=== PATIENT | female | born 1950 | race Caucasian/White ===

== ENCOUNTER → 2016-07-14 | Outpatient (CLI) | payer OTHER ==
[2016-07-14 08:21] LABS: CH 29.6; CHCM 31.8; HCT 41.5 % (34.0-46.0); HDW 2.21; HGB 13.4 gm/dL (11.4-16.0); MCH 30.2 pg (25.0-35.0); MCHC 32.2 g/dL (31.0-37.0); MCV 93.6 fL (80.0-100.0); Mean Platelet Volume 7.2; RBC 4.44 m/uL (3.80-5.40); RDW 12.4 % (11.5-15.5); WBC 6.1 k/uL (3.8-10.6)
--- NOTE | 2016-07-14 08:36 | XR ---
EXAMINATION TYPE: XR chest 2V DATE OF EXAM: 07/14/2016 7:59 AM HISTORY: Back pain. REFERENCE: Previous study dated 11/04/2012. FINDINGS: The lungs are overinflated but clear. Pleural spaces are clear. Heart size is normal. There is a mild dextroscoliosis. There is mild spondylosis deformans throughout the dorsal spine. No fractures are seen. IMPRESSION: 1. COPD. 2. MILD DEGENERATIVE CHANGE WITHIN THE THORACIC SPINE.
[2016-07-14 08:47] LABS: ALT 26 U/L (9-52); AST 16 U/L (14-36); Alkaline Phosphatase 84 U/L (38-126); Anion Gap 11 mmol/L; Blood Urea Nitrogen 18 mg/dL (7-17); Calcium 9.6 mg/dL (8.4-10.2); Carbon Dioxide 24 mmol/L (22-30); Chloride 109 mmol/L (98-107); Cholesterol 234 mg/dL (<200); Glucose 96 mg/dL (74-99); HDL Cholesterol 46 mg/dL (40-60); Non-African American GFR(MDRD) >60 (>60 ml/min/1.73 sqM); Potassium 4.5 mmol/L (3.5-5.1); Sodium 144 mmol/L (137-145); Total Bilirubin 0.6 mg/dL (0.2-1.3); Total Protein 7.1 g/dL (6.3-8.2); Triglycerides 163 mg/dL (<150)
== END | disposition home or self-care (01) ==
LOC: LABWHC1 07:40
PROVIDERS: ATTEND Internal Medicine
DX: E11.9 Type 2 diabetes mellitus without complications (principal); E78.2 Mixed hyperlipidemia; J44.9 Chronic obstructive pulmonary disease, unspecified
CPT/HCPCS: 36415; 71020; 80053; 80061; 84439; 84443; 85027

== ENCOUNTER → 2017-09-07 | Outpatient (CLI) | payer OTHER ==
--- NOTE | 2017-09-09 07:29 | MM ---
Reason for exam: screening (asymptomatic). Last mammogram was performed 1 year and 8 months ago. History: Patient is postmenopausal. Physical Findings: A clinical breast exam by your physician is recommended on an annual basis and results should be correlated with mammographic findings. MG Screening Mammo w CAD Bilateral CC and MLO view(s) were taken. Prior study comparison: December 24, 2015, bilateral MG screening mammo w CAD. March 18, 2014, right breast MG work up mamm w CAD RT. The breast tissue is heterogeneously dense. This may lower the sensitivity of mammography. No significant changes when compared with prior studies. ASSESSMENT: Negative, BI-RAD 1 RECOMMENDATION: Routine screening mammogram of both breasts in 1 year.
== END | disposition home or self-care (01) ==
LOC: RADMAMWWP 07:49
PROVIDERS: ATTEND Internal Medicine
DX: Z12.31 Encounter for screening mammogram for malignant neoplasm of breast (principal)
CPT/HCPCS: 77067

== ENCOUNTER → 2018-02-14 | Outpatient (CLI) | payer MEDICARE ==
[2018-02-14 08:54] LABS: ALT 24 U/L (9-52); AST 21 U/L (14-36); Albumin 4.1 g/dL (3.5-5.0); Alkaline Phosphatase 75 U/L (38-126); Anion Gap 7 mmol/L; Blood Urea Nitrogen 29 mg/dL (7-17); Calcium 9.8 mg/dL (8.4-10.2); Carbon Dioxide 25 mmol/L (22-30); Chloride 108 mmol/L (98-107); Glucose 102 mg/dL (74-99); Potassium 4.3 mmol/L (3.5-5.1); Sodium 140 mmol/L (137-145); Total Bilirubin 0.3 mg/dL (0.2-1.3); Total Protein 6.9 g/dL (6.3-8.2)
[2018-02-14 08:58] LABS: HCT 44.8 % (34.0-46.0); HGB 13.9 gm/dL (11.4-16.0); MCH 29.1 pg (25.0-35.0); MCHC 30.9 g/dL (31.0-37.0); Mean Platelet Volume 6.9; Platelet Count 246 k/uL (150-450); RBC 4.77 m/uL (3.80-5.40); RDW 12.8 % (11.5-15.5)
--- NOTE | 2018-02-14 09:54 | XR ---
EXAMINATION TYPE: XR chest 2V DATE OF EXAM: 02/14/2018 COMPARISON: 07/14/2016 INDICATION: COPD, wellness check, asthma TECHNIQUE: Frontal and lateral views of the chest are obtained. FINDINGS: The heart size is normal. The pulmonary vasculature is normal. The lungs are clear. There is hyperinflation flattening the diaphragms which can be related to COPD or asthma. There is some apical mild changes which appears stable. IMPRESSION: 1. Hyperinflation. Findings can be related to asthma and COPD. 2. Mild apical changes, stable 2016.
== END | disposition home or self-care (01) ==
LOC: LABWHC1 07:55
PROVIDERS: ATTEND Internal Medicine
DX: Z00.00 Encounter for general adult medical examination without abnormal findings (principal); J44.9 Chronic obstructive pulmonary disease, unspecified; K21.0 Gastro-esophageal reflux disease with esophagitis; M19.90 Unspecified osteoarthritis, unspecified site; R91.8 Other nonspecific abnormal finding of lung field
CPT/HCPCS: 36415; 71046; 80053; 84439; 85027

== ENCOUNTER → 2018-06-28 | Outpatient (CLI) | payer MEDICARE, OTHER ==
--- NOTE | 2018-06-28 11:00 | XR ---
EXAMINATION TYPE: XR chest 2V DATE OF EXAM: 06/28/2018 COMPARISON: 02/14/2018 INDICATION: Cough and congestion for one month TECHNIQUE: Frontal and lateral views of the chest are obtained. FINDINGS: The heart size is normal. The pulmonary vasculature is normal. The lungs are clear. Some mild increased lung markings at the lung apices are stable over the interv al. IMPRESSION: 1. No acute pulmonary process.
== END | disposition home or self-care (01) ==
LOC: RADXRMAIN 10:38
PROVIDERS: ATTEND Internal Medicine
DX: J44.9 Chronic obstructive pulmonary disease, unspecified (principal); R05 Cough
CPT/HCPCS: 71046

== ENCOUNTER → 2018-08-26 | Outpatient (CLI) | payer MEDICARE ==
[2018-08-26 16:35] LABS: LDL Cholesterol,Calculated 146.2 mg/dL (0.0-131.0); VLDL Calculation 19.8 mg/dL (5.00-40.00)
== END | disposition home or self-care (01) ==
LOC: LABWHC1 08:42
PROVIDERS: ATTEND Internal Medicine
DX: E78.2 Mixed hyperlipidemia (principal)
CPT/HCPCS: 36415; 80061

== ENCOUNTER → 2018-11-24 | Outpatient (CLI) | payer MEDICARE ==
[2018-11-24 16:29] LABS: Anion Gap 6.7 mmol/L (4.00-12.00); Calcium 9.7 mg/dL (8.7-10.3); Carbon Dioxide 26.3 mmol/L (21.6-31.8); Potassium 4.2 mmol/L (3.5-5.5)
== END ==
LOC: LABWHC1 09:07
PROVIDERS: ATTEND Internal Medicine
DX: E87.8 Other disorders of electrolyte and fluid balance, not elsewhere classified (principal)
CPT/HCPCS: 36415; 80048; 85652

== ENCOUNTER → 2019-03-22 | Outpatient (CLI) | payer MEDICARE ==
--- NOTE | 2019-03-22 11:44 | XR ---
EXAMINATION TYPE: XR chest 2V DATE OF EXAM: 03/22/2019 COMPARISON: Chest x-ray June 28, 2018. HISTORY: Cough for one week. TECHNIQUE: Frontal and lateral views of the chest are obtained. FINDINGS: There is moderate biapical pleural/parenchymal scarring redemonstrated. There is no focal a ir space opacity, pleural effusion, or pneumothorax seen. The cardiac silhouette size is within norm al limits. The osseous structures are intact. Cholecystectomy clips are noted. IMPRESSION: No suspicious new acute pulmonary process.
[2019-03-22 11:55] LABS: Basophils % (A) 1 %; Eosinophils # (A) 0.2 k/uL (0-0.7); Eosinophils % (A) 2 %; HCT 41.1 % (34.0-46.0); HGB 13.4 gm/dL (11.4-16.0); Lymphocytes # (A) 2.5 k/uL (1.0-4.8); Lymphocytes % (A) 37 %; MCH 30.1 pg (25.0-35.0); MCHC 32.5 g/dL (31.0-37.0); MCV 92.6 fL (80.0-100.0); Mean Platelet Volume 6.4; Monocytes # (A) 0.3 k/uL (0-1.0); Monocytes % (A) 5 %; Neutrophils # (A) 3.5 k/uL (1.3-7.7); Neutrophils % (A) 53 %; Platelet Count 271 k/uL (150-450); RBC 4.44 m/uL (3.80-5.40); RDW 12.3 % (11.5-15.5); WBC 6.7 k/uL (3.8-10.6)
[2019-03-22 17:42] LABS: Anion Gap 8.9 mmol/L (4.00-12.00); BUN/Creat Ratio 23.75 Ratio (12.00-20.00); Calcium 9.7 mg/dL (8.7-10.3); Carbon Dioxide 26.1 mmol/L (21.6-31.8); Magnesium 2.1 mg/dL (1.5-2.4); Potassium 4.5 mmol/L (3.5-5.5)
== END | disposition home or self-care (01) ==
LOC: LABWHC1 10:54
PROVIDERS: ATTEND Internal Medicine
DX: J40 Bronchitis, not specified as acute or chronic (principal); J06.9 Acute upper respiratory infection, unspecified; J12.9 Viral pneumonia, unspecified
CPT/HCPCS: 36415; 71046; 80048; 83735; 85025

== ENCOUNTER → 2019-12-13 | Outpatient (CLI) | payer MEDICARE ==
[2019-12-13 08:35] LABS: Basophils % (A) 0 %; Eosinophils # (A) 0.2 k/uL (0-0.7); Eosinophils % (A) 4 %; HCT 42.1 % (34.0-46.0); HGB 13.4 gm/dL (11.4-16.0); Lymphocytes # (A) 2.4 k/uL (1.0-4.8); Lymphocytes % (A) 40 %; MCH 29.8 pg (25.0-35.0); MCHC 31.8 g/dL (31.0-37.0); MCV 93.6 fL (80.0-100.0); Mean Platelet Volume 7.8; Monocytes # (A) 0.4 k/uL (0-1.0); Monocytes % (A) 6 %; Neutrophils # (A) 2.8 k/uL (1.3-7.7); Neutrophils % (A) 47 %; Platelet Count 237 k/uL (150-450); RDW 12.6 % (11.5-15.5); WBC 5.9 k/uL (3.8-10.6)
[2019-12-13 17:36] LABS: ALT 16 U/L (8-44); AST 21 U/L (13-35); African American GFR (CKD) 103.9 (60.0-200.0); Albumin/Globulin Ratio 1.91 (1.60-3.17); Alkaline Phosphatase 82 U/L (41-126); BUN/Creat Ratio 34.29 Ratio (12.00-20.00); C Reactive Protein <0.4 mg/dL (0.0-0.8); Calcium 9.8 mg/dL (8.7-10.3); Carbon Dioxide 27.3 mmol/L (21.6-31.8); Chloride 109 mmol/L (96-109); Chol/HDL Ratio 5.93; Cholesterol 255 mg/dL (0-200); Creatine Kinase 67 U/L (26-186); Globulin 2.3 g/dL (1.6-3.3); Glucose 102 mg/dL (70-110); Non-African American GFR(CKD) 89.7 (60.0-200.0); Potassium 4.2 mmol/L (3.5-5.5); Sodium 142 mmol/L (135-145); Total Bilirubin 0.5 mg/dL (0.3-1.2); Total Protein 6.7 g/dL (6.2-8.2)
[2019-12-13 17:39] LABS: Erythrocyte Sedimentation Rate 17 mm/Hr (0-30)
== END | disposition home or self-care (01) ==
LOC: LABWHC1 07:55
PROVIDERS: ATTEND Internal Medicine
DX: I10 Essential (primary) hypertension (principal); J44.9 Chronic obstructive pulmonary disease, unspecified; E03.9 Hypothyroidism, unspecified; E78.5 Hyperlipidemia, unspecified; E55.9 Vitamin D deficiency, unspecified; F41.9 Anxiety disorder, unspecified
CPT/HCPCS: 36415; 80053; 80061; 82306; 82550; 84443; 85025; 85652; 86140

== ENCOUNTER → 2019-12-18 | Outpatient (CLI) | payer MEDICARE | END | disposition home or self-care (01) | LOC: LABWHC1 06:54 | PROVIDERS: ATTEND Internal Medicine | DX: Z03.818 Encounter for observation for suspected exposure to other biological agents ruled out (principal) ==

== ENCOUNTER → 2020-01-22 | Outpatient (CLI) | payer MEDICARE | END | disposition home or self-care (01) | LOC: LABWHC1 11:13 | PROVIDERS: ATTEND Internal Medicine | DX: E83.52 Hypercalcemia (principal); E53.8 Deficiency of other specified B group vitamins; R25.2 Cramp and spasm | CPT/HCPCS: 36415; 82607; 83735 ==

== ENCOUNTER → 2020-01-22 | Outpatient (CLI) | payer MEDICARE ==
[2020-01-22 10:17] VITALS: BP 126/75; PULSE 63; RESP 18; TEMP 98.1
--- NOTE | 2020-01-22 12:28 | P.HPOB ---
History of Present Illness H&P Date: 01/22/20 Chief Complaint: Urinary leakage that has gotten worse over the past 8 weeks. This is a 69-year-old 014 with an LMP of 1980s. The patient is status post vaginal hysterectomy with BSO in the for some type of prolapse. She thinks she may have had some type of repair done on the bladder at that time, like a cystocele repair or sling. She states she has noticed worsening urinary leakage over the past 8 weeks. She has leakage with coughing and sneezing and this can be immediate. She also has occasions when she has a strong urge to go and will leak if she does not get to the bathroom immediately. She denies feeling a bulge from the vagina, but prior to her hysterectomy she did have some type of bulge. She had a urine test done recently by Dr. Xiong and this was negative for infection per the patient. She denies nocturia. Review of Systems Weight has been stable. She denies respiratory, cardiac and G.I. problems. She denies maltreatment or problems with falling. : She has had urinary leakage associated with cough and sneeze as well as urge incontinence. See the HPI for additional details. Past Medical History Past Medical History: Asthma, COPD, Hyperlipidemia, Hypertension Additional Past Medical History / Comment(s): PAST [employer] HISTORY: She has no history of STDs. History of Any Multi-Drug Resistant Organisms: None Reported Past Surgical History: Cholecystectomy, Hysterectomy, Orthopedic Surgery, Tonsillectomy Additional Past Surgical History / Comment(s): Vaginal hysterectomy with BSO in the . Knee surgery. Varicose vein surgery. Colonoscopy 2018(next after 10yr). Past Psychological History: No Psychological Hx Reported Smoking Status: Current every day smoker (One pack per day) Past Alcohol Use History: Rare (0-1 per month) Past Drug Use History: None Reported Additional History: She was a and remarried and is now . She is not seeing anybody at this time and is not sexually active. 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 - Past Family History Mother Family Medical History: CVA/TIA Additional Family Medical History / Comment(s): Maternal grandmother had some type of aneurysm. Father Additional Family Medical History / Comment(s): in a fire. Medications and Allergies Home Medications Medication Instructions Recorded Confirmed Type Albuterol Inhaler (Mhu) [Ventolin 1 - 2 puff INHALATION Q6HR PRN 01/12/16 01/22/20 History Hfa Inhaler] Aspirin 81 mg PO DAILY 01/12/16 01/22/20 History Montelukast [Singulair] 10 mg PO HS 01/12/16 01/22/20 History Folic Acid 0.4 mg PO DAILY 01/14/16 01/22/20 History Atorvastatin [Lipitor] 20 mg PO HS 01/22/20 01/22/20 History Doterra Vitamins 1 tab PO DAILY 01/22/20 01/22/20 History Lisinopril [Prinivil] 10 mg PO DAILY 01/22/20 01/22/20 History Magnesium 200 mg PO DAILY 01/22/20 01/22/20 History Metoprolol Succinate (ER) [Toprol 25 mg PO DAILY 01/22/20 01/22/20 History Xl] Potassium Chloride 8 meq PO DAILY 01/22/20 01/22/20 History amLODIPine BESYLATE 5 mg PO DAILY 01/22/20 01/22/20 History Allergies Allergy/AdvReac Type Severity Reaction Status Date / Time ketorolac tromethamine Allergy Anaphylaxis Verified 01/22/20 09:58 [From Toradol] Exam Vital Signs Temp Pulse Resp BP Pulse Ox 01/22/20 10:16 98.1 F 63 18 126/75 98 Intake and Output 01/21/20 01/22/20 01/22/20 22:59 06:59 14:59 Other: Weight 55.792 kg Height 5 feet 2 inches, weight 123 pounds, BMI 22.5. This is a well-developed well-nourished white female who is alert and oriented times 3 in no acute distress. HEENT: Within normal limits. NECK: Supple without mass or thyromegaly. CHEST AND LUNGS: Clear to auscultation. HEART: Regular rate and rhythm. BREASTS: Are without mass or discharge. AXILLARY EXAM: Negative for adenopathy. BACK: Negative for CVA tenderness. ABDOMEN: Soft, nontender, without palpable masses. PELVIC EXAM: External genitalia appears normal with moderate atrophy. Vagina appears normal with moderate atrophy. There is no evidence of prolapse. Bimanual examination is negative for mass or tenderness. Pelvic muscles seem strong with Kegal contraction. No bulge or urinary leakage was noted upon Valsalva or coughing. Only slight urethral mobility was noted with coughing. RECTAL EXAM: Rectovaginal exam is negative for mass or tenderness and is negative for occult blood. There is good sphincter tone. EXTREMITIES: Nontender. IMPRESSION: 1. 69-year-old menopausal female status post vaginal hysterectomy with BSO with normal gynecologic exam. 2. Possible previous cystocele repair or sling procedure. The patient is uncertain of what procedure was done at the time of her hysterectomy. 3. Mixed urinary incontinence with some features of stress incontinence and some features of urge incontinence. No significant physical findings at this time. PLAN: 1. Pap smears have been discontinued. 2. Self breast awareness was discussed with the patient. 3. Screening mammogram is due and the order slip was given to the patient for this. 4. I have recommended that she quit smoking in have given her several reasons for this. Coughing seems to aggravate her incontinence and this was another reason why she should quit smoking. 5. We had a long discussion regarding types of urinary incontinence. We will try regular kegal exercises and timed voids. She states she has had a negative urine test recently through her PCP. Instructions on kegal exercises and timed voids were given to the patient. If she is not noticing improvement in 2 months, she was instructed to make an appointment for reevaluation and we can consider other treatment options such as medication for an overactive bladder. We can also consider referral to uro-financial reporting consultant. 6. She does get flu shots in the fall. 7. She was advised to return in one year for her annual well woman exam and as needed.
== END | disposition home or self-care (01) ==
LOC: WWCWWP 09:46
PROVIDERS: ATTEND Obstetrics & Gynecology
DX: Z53.9 Procedure and treatment not carried out, unspecified reason (principal)

== ENCOUNTER → 2020-05-21 | Outpatient (CLI) | payer MEDICARE ==
--- NOTE | 2020-05-23 10:59 | MM ---
Reason for exam: screening (asymptomatic). Last mammogram was performed 2 years and 8 months ago. History: Patient is postmenopausal. Physical Findings: A clinical breast exam by your physician is recommended on an annual basis and results should be correlated with mammographic findings. MG 3D Screening Mammo W/Cad Bilateral CC and MLO view(s) were taken. Prior study comparison: September 07, 2017, bilateral MG screening mammo w CAD. December 24, 2015, bilateral MG screening mammo w CAD. The breast tissue is heterogeneously dense. This may lower the sensitivity of mammography. No significant changes when compared with prior studies. ASSESSMENT: Benign, BI-RAD 2 RECOMMENDATION: Routine screening mammogram of both breasts in 1 year.
== END | disposition home or self-care (01) ==
LOC: RADMAMWWP 16:32
PROVIDERS: ATTEND Obstetrics & Gynecology
DX: Z12.31 Encounter for screening mammogram for malignant neoplasm of breast (principal)
CPT/HCPCS: 77063; 77067

== ENCOUNTER → 2020-08-04 | Outpatient (CLI) | payer MEDICARE ==
--- NOTE | 2020-08-04 16:06 | BD ---
EXAMINATION TYPE: Axial Bone Density DATE OF EXAM: 08/04/2020 COMPARISON: NONE CLINICAL HISTORY: Height: 61 IN Weight: 128 LBS FRAX RISK QUESTIONS: Current Tobacco Use: YES RISK FACTORS HISTORY OF: Family History of Osteoporosis: YES MOTHER Active: YES Diet low in dairy products/other sources of calcium: YES Postmenopausal woman: TOTAL HYST AGE 47 MEDICATIONS: Additional Medications: VIT D, BLOOD PRESSURE MEDS, ASTHMA MEDS, CHOLESTEROL MEDS, EXAM MEASUREMENTS: Bone mineral densitometry was performed using the [employer] System. Bone mineral density as measured about the Lumbar spine is: ----- L1-L4(G/cm2): 1.270 T Score Values are as follows: ----- L2: -0.4 ----- L3: 1.2 ----- L4: 2.0 ----- L1-L4: 0.7 Bone mineral density has: Decreased -7.6% since study of: 10/20/2001 Bone mineral density about the R hip (g/cm2): 0.839 Bone mineral density about the L hip (g/cm2): 0.930 T Score values are as follows: -----R Neck: -1.4 -----L Neck: -0.8 -----R Total: -1.2 -----L Total: -0.5 Bone mineral density has: Decreased -16.7% since study of: 10/20/2001 IMPRESSION: Osteopenia (T Score between -2.5 and -1). There is slightly increased risk of fracture and the patient may be considered for treatment. Re-Screen 2-5 years. NOTE: T-SCORE=SD OF THE YOUNG ADULT MEAN.
== END | disposition home or self-care (01) ==
LOC: RADBDWWP 13:06
PROVIDERS: ATTEND Family Medicine
DX: M85.80 Other specified disorders of bone density and structure, unspecified site (principal); Z78.0 Asymptomatic menopausal state
CPT/HCPCS: 77080